=== PATIENT | male | born 1985 | race Caucasian/White ===

== ENCOUNTER 2019-07-25 12:33 | Emergency (ER) | payer BC ==
[2019-07-25] MEDS ORDERED: Aspirin 81 MG Tab.Chew PO ONE (12:55)
[2019-07-25 13:06] VITALS: BP 145/96; PULSE 82
[2019-07-25 13:17] LABS: ANION GAP 12.8; CHLORIDE,CL 99 mmol/L (101-111); SODIUM,NA 137 mmol/L (135-145)
--- NOTE | 2019-07-25 13:37 | CR ---
EXAMINATION: Chest 2V SEX: Male AGE: 34 years CLINICAL HISTORY: 34-year-old male emergency department with chest "pressure". INTERPRETATION: 1. Bony thorax unremarkable. 2. Normal cardiac silhouette without cephalization of vascular flow, signs of alveolar edema or dependent pleural effusion. 3. No lung mass, hilar lymphadenopathy or focal lobar pneumonia. 4. No atelectasis/collapse. 5. No pneumothorax. CONCLUSION: No acute cardiopulmonary abnormality.
[2019-07-25] MEDS ORDERED: GI Cocktail Oral Solution 30 ML PO ONE (14:36)
[2019-07-25] MEDS ORDERED: Famotidine 20 MG/2 ML SDV IVPUSH ONE (14:36)
--- NOTE | 2019-07-25 15:16 | EDM.PDOC ---
ED HPI GENERAL MEDICAL PROBLEM - General Chief Complaint: Chest Pain Stated Complaint: CHEST PAINS SINCE THIS MORNING Time Seen by Provider: 07/25/19 12:50 Source of Information: Reports: Patient, RN History Limitations: Reports: No Limitations - History of Present Illness INITIAL COMMENTS - FREE TEXT/NARRATIVE: ED with c/o chest pain, point and rubs epigastric area brief last ing less than a couple of minutes, since dull pressure across left lower chest. Similar episode one week ago while walking, Today while sitting. No nausea, vomiting, or SOB. - Related Data Allergies Allergy/AdvReac Type Severity Reaction Status Date / Time penicillin Allergy Hives Verified 07/27/17 08:31 Past Medical History - Past Surgical History GI Surgical History: Reports: Cholecystectomy Social & Family History - Family History Family Medical History: Noncontributory - Caffeine Use Caffeine Use: Reports: Coffee, Soda - Recreational Drug Use Recreational Drug Use: No ED ROS GENERAL - Review of Systems Review Of Systems: ROS reveals no pertinent complaints other than HPI. ED EXAM, GENERAL - Physical Exam Exam: See Below Exam Limited By: No Limitations General Appearance: Alert, No Apparent Distress, Anxious Eye Exam: Bilateral Eye: EOMI, PERRL Ears: Hearing Grossly Normal Nose: Normal Inspection Throat/Mouth: Normal Inspection Neck: Normal Inspection Respiratory/Chest: No Respiratory Distress, Lungs Clear, Normal Breath Sounds Cardiovascular: Normal Peripheral Pulses, Regular Rate, Rhythm GI/Abdominal: Normal Bowel Sounds, Soft Back Exam: Full Range of Motion Extremities: Normal Inspection Neurological: Alert, Oriented, CN II-XII Intact Psychiatric: Normal Affect, Normal Mood Skin Exam: Warm, Dry, Intact, Normal Color, No Rash Course - Vital Signs Last Recorded V/S: Last Vital Signs Temp 98.1 F 07/25/19 12:50 Pulse 82 07/25/19 12:50 Resp 16 07/25/19 12:50 BP 145/96 H 07/25/19 12:50 Pulse Ox 99 07/25/19 12:50 - Orders/Labs/Meds Orders: Active Orders 24 hr Category Date Time Status EKG 12 Lead [EKG Documentation Completion] [RC] STAT Care 07/25/19 12:48 Active UA RFX BRENDA AND CULT IF INDIC [URIN] Urgent Lab 07/25/19 12:56 Ordered Labs: Laboratory Tests 07/25/19 07/25/19 07/25/19 Range/Units 12:50 12:50 12:50 WBC 6.1 (5.0-10.0) 10^3/uL RBC 5.36 (4.6-6.2) 10^6/uL Hgb 17.1 (14.0-18.0) g/dL Hct 48.6 (40.0-54.0) % MCV 90.7 (80-100) fL MCH 31.9 (27.0-34.0) pg MCHC 35.2 H (33.0-35.0) g/dL Plt Count 225 (150-450) 10^3/uL Neut % (Auto) 55.5 (42.2-75.2) % Lymph % (Auto) 32.3 (20.5-50.1) % Pershing % (Auto) 10.8 H (2-8) % Eos % (Auto) 1.1 (1.0-3.0) % Baso % (Auto) 0.3 (0.0-1.0) % D-Dimer, Quantitative (0-400) ng/mL Sodium 137 (135-145) mmol/L Potassium 3.8 (3.6-5.0) mmol/L Chloride 99 L (101-111) mmol/L Carbon Dioxide 29.0 (21.0-31.0) mmol/L Anion Gap 12.8 BUN 15 (7-18) mg/dL Creatinine 1.3 (0.6-1.3) mg/dL Est Cr Clr Drug Dosing 91.33 mL/min Estimated GFR (MDRD) > 60 BUN/Creatinine Ratio 11.53 Glucose 153 H (74-105) mg/dL Calcium 9.1 (8.4-10.2) mg/dl Total Bilirubin 2.0 H (0.2-1.0) mg/dL AST 65 H (10-42) IU/L ALT 121 H (10-60) IU/L Alkaline Phosphatase 44 (42-121) IU/L CK-MB (CK-2) 0.70 (0.4-4.7) ng/mL Troponin I < 0.02 (0.00-0.02) ng/ml Total Protein 7.4 (6.7-8.2) g/dl Albumin 4.4 (3.2-5.5) g/dl Globulin 3.0 Albumin/Globulin Ratio 1.47 Amylase (28-100) U/L Lipase (22-51) U/L 07/25/19 07/25/19 Range/Units 12:50 12:50 WBC (5.0-10.0) 10^3/uL RBC (4.6-6.2) 10^6/uL Hgb (14.0-18.0) g/dL Hct (40.0-54.0) % MCV (80-100) fL MCH (27.0-34.0) pg MCHC (33.0-35.0) g/dL Plt Count (150-450) 10^3/uL Neut % (Auto) (42.2-75.2) % Lymph % (Auto) (20.5-50.1) % Pershing % (Auto) (2-8) % Eos % (Auto) (1.0-3.0) % Baso % (Auto) (0.0-1.0) % D-Dimer, Quantitative < 100 (0-400) ng/mL Sodium (135-145) mmol/L Potassium (3.6-5.0) mmol/L Chloride (101-111) mmol/L Carbon Dioxide (21.0-31.0) mmol/L Anion Gap BUN (7-18) mg/dL Creatinine (0.6-1.3) mg/dL Est Cr Clr Drug Dosing mL/min Estimated GFR (MDRD) BUN/Creatinine Ratio Glucose (74-105) mg/dL Calcium (8.4-10.2) mg/dl Total Bilirubin (0.2-1.0) mg/dL AST (10-42) IU/L ALT (10-60) IU/L Alkaline Phosphatase (42-121) IU/L CK-MB (CK-2) (0.4-4.7) ng/mL Troponin I (0.00-0.02) ng/ml Total Protein (6.7-8.2) g/dl Albumin (3.2-5.5) g/dl Globulin Albumin/Globulin Ratio Amylase 48 (28-100) U/L Lipase 26 (22-51) U/L Meds: Medications Discontinued Medications Generic Name Dose Route Start Last Admin Trade Name Freq PRN Reason Stop Dose Admin Al Hydroxide/Mg Hydroxide 30 ml 07/25/19 14:36 07/25/19 14:48 Gi Cocktail PO 07/25/19 14:37 30 ml ONETIME ONE Administration Aspirin 324 mg 07/25/19 12:55 07/25/19 13:10 Aspirin PO 07/25/19 12:56 324 mg ONETIME ONE Administration Famotidine 20 mg 07/25/19 14:36 07/25/19 14:48 Pepcid IVPUSH 07/25/19 14:37 20 mg ONETIME ONE Administration Departure - Departure Time of Disposition: 15:13 Disposition: Home, Self-Care 01 Condition: Good Clinical Impression: Atypical chest pain, Epigastric abdominal pain of unknown etiology - Discharge Information *PRESCRIPTION DRUG MONITORING PROGRAM REVIEWED*: Not Applicable *COPY OF PRESCRIPTION DRUG MONITORING REPORT IN PATIENT MARINA: Not Applicable Instructions: Nonspecific Chest Pain Forms: ED Department Discharge Additional Instructions: activity as tolerated, follow up as needed omperazole or pepcid daily bland diet - My Orders Last 24 Hours: My Active Orders 07/25/19 12:48 EKG 12 Lead [EKG Documentation Completion] [RC] STAT 07/25/19 12:56 UA RFX BRENDA AND CULT IF INDIC [URIN] Urgent - Assessment/Plan Last 24 Hours: My Active Orders 07/25/19 12:48 EKG 12 Lead [EKG Documentation Completion] [RC] STAT 07/25/19 12:56 UA RFX BRENDA AND CULT IF INDIC [URIN] Urgent
== END 2019-07-25 15:30 | disposition home or self-care (01) ==
LOC: DL.ED 12:33
DX: R10.13 Epigastric pain (principal); R07.89 Other chest pain; Z88.0 Allergy status to penicillin; Z90.49 Acquired absence of other specified parts of digestive tract
CPT/HCPCS: 36415; 71046; 80053; 82150; 82553; 83690; 84484; 85025; 85379; 93005; 99285; A9270; J3490